=== PATIENT | female | born 1950 | race Caucasian/White ===

== ENCOUNTER 2020-05-13 10:31 | Day surgery (SDC) | payer MEDICARE, SELFPAY ==
[2020-04-01 16:56] VITALS: BMI 37.9
[2020-05-03 15:07] VITALS: BMI 37.9
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
[2020-05-13 10:37] VITALS: BP 138/82; PULSE 80; RESP 18; TEMP 36.2; O2SAT 97
[2020-05-13] MEDS: Lactated Ringers 1,000 ML 100 ML IVCONT (11:28)
[2020-05-13 12:29] VITALS: BP 95/49; PULSE 71; RESP 15; TEMP 36.9; O2SAT 94
--- NOTE | 2020-05-13 12:37 | PM.OP ---
Brief Operative Note Date of Service: 05/13/20 Pre-op diagnosis: Hx of appendiceal orifice serrated adenoma Post-op diagnosis: other (Appendiceal orifice polyp, Diverticulosis, Cecal AVM) Procedure: Colonoscopy to cecum and TI with biopsies Surgeon: Vamshi Cobian Anesthesia: MAC Estimated blood loss (mL): 3.0 Pathology: other (A. Appendiceal orifice polyp) Condition: stable Disposition: PACU
[2020-05-13 12:46] VITALS: BP 103/52; PULSE 69; RESP 16; TEMP 36.9; O2SAT 96
--- NOTE | 2020-05-13 13:07 | OP_ITS ---
SURGEON: Vamshi Cobian MD INDICATIONS: The patient presents for evaluation of a personal history of a serrated adenoma of the appendiceal orifice. Full consent has been obtained from her for this, including risks of bleeding and perforation. PREOPERATIVE DIAGNOSIS: POSTOPERATIVE DIAGNOSIS: PROCEDURE PERFORMED: Colonoscopy to the cecum and terminal ileum with biopsies. ESTIMATED BLOOD LOSS: COMPLICATIONS: ANESTHESIA: Monitored anesthesia care. ASSISTANTS: SPECIMENS: PREOPERATIVE DIAGNOSES: Personal history of serrated adenoma of the appendiceal orifice, colorectal cancer screening. POSTOPERATIVE DIAGNOSES: Personal history of serrated adenoma of the appendiceal orifice, colorectal cancer screening, appendiceal orifice polyp, diverticulosis and internal hemorrhoids. DESCRIPTION OF PROCEDURE: The patient was placed in the left lateral decubitus position. The digital rectal exam revealed no abnormalities. The Olympus video pediatric colonoscope was entered into the rectum and advanced easily to the cecum. Once in the cecum, I did identify cecal pouch. There was an approximately 4 mm nonbleeding cecal angiodysplasia. The terminal ileum was cannulated and appeared normal. The scope was withdrawn back in the colon. The entire cecum was well visualized. The appendiceal orifice was carefully inspected. There did appear to be residual polypoid tissue going in and out of the appendiceal orifice. I was not able to remove it entirely given its tendency to go back into the appendiceal orifice. However, I do feel I obtained at least 2 or 3 biopsies from the polypoid tissue. The remainder of the cecum appeared normal. The scope was then slowly withdrawn assessing all mucosal surfaces carefully. Preparation was excellent. I did not visualize any other polyps, colitis, nor angiodysplasia. There was a mild amount of sigmoid diverticulosis. In the rectum, scope was retroflexed visualizing internal hemorrhoids, but no other pathology. The rectal mucosa appeared normal. Scope was straightened and withdrawn from the patient. She tolerated the procedure well and was returned to the recovery area in stable condition. IMPRESSION: 1. Appendiceal orifice polyp, status post biopsy. 2. Diverticulosis. 3. Internal hemorrhoids. PLAN: The results of the biopsies will be checked. If the biopsies from the appendiceal orifice polyp continued to show adenomatous, and especially serrated adenoma, tissue, I would then definitely recommend surgical consultation to remove this via a partial resection of that area, including appendectomy. She was advised not to use any aspirin and NSAIDs for 1 week. I will be in touch with her as of the biopsy results. I would recommend a repeat colonoscopy within 2 years for followup. MD MARYANN Blake/KAITLYN / [id number]
== END 2020-05-13 23:59 | disposition home or self-care (01) ==
PROVIDERS: Visit Provider Internal Medicine
PROC: 0DJD8ZZ Inspection of Lower Intestinal Tract, Via Natural or Artificial Opening Endoscopic (ICD-10-PCS; CPT 45378; principal; 2020-05-13 11:30)
DX: Z12.11 Encounter for screening for malignant neoplasm of colon (principal); D12.0 Benign neoplasm of cecum; K55.20 Angiodysplasia of colon without hemorrhage; K57.30 Diverticulosis of large intestine without perforation or abscess without bleeding; K64.8 Other hemorrhoids; K58.0 Irritable bowel syndrome with diarrhea; I10 Essential (primary) hypertension; Z79.82 Long term (current) use of aspirin
CPT/HCPCS: 45380; 88305

== ENCOUNTER → 2020-06-13 11:01 | Outpatient (BNVA) | payer MEDICARE, SELFPAY | PROVIDERS: PCP Internal Medicine; Referring Provider Internal Medicine; Visit Provider Surgery | DX: D12.1 Benign neoplasm of appendix (principal) | CPT/HCPCS: 99212 ==

== ENCOUNTER 2020-07-03 08:07 | Day surgery (SDC) | payer MEDICARE, SELFPAY ==
[2020-06-28 08:07] VITALS: BMI 36.1
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
[2020-07-03] VITALS (8 sets, daily range): BP systolic 115–171; BP diastolic 40–68; PULSE 66–75; RESP 16–23; TEMP 36.4–37.6; O2SAT 92–96
[2020-07-03] MEDS: Acetaminophen 325 MG TABLET 650 MG PO (08:30)
[2020-07-03] MEDS: Lactated Ringers 1,000 ML 100 ML IVCONT (08:41)
[2020-07-03] MEDS: cefoTEtan disodium 2 GM in 0.9 % Sodium Chloride 50 ML IV (08:42)
--- NOTE | 2020-07-03 09:13 | MHC.SHP ---
Pre-Procedural Eval Section A The patient is an INPATIENT: No Changes since office visit: Yes Patient answered all questions; No Cold of Flu in the past 2 weeks, No New Medical Problems and No Changes in Medication The History & Physical has been completed within 30 days and I have reviewed it.: Yes Section B Chief Complaint: adenoma of appendix Allergies: Allergies Allergy/AdvReac Type Severity Reaction Status Date / Time Sulfa (Sulfonamide Allergy Intermediate Itching Verified 06/28/20 08:18 Antibiotics) [SULFA (SULFONAMIDE ANTIBIOTICS)] trazodone Allergy Unknown Unknown Verified 06/28/20 08:14 Plan I have reviewed the history and physical and performed a pertinent physical examination on my patient. No changes have occurred unless specified.
--- NOTE | 2020-07-03 10:58 | P.OP_ITS ---
Operative Note Operative Note Date of Service: 07/03/20 Narrative: Peroperative diagnosis: Sessile polyp our FS appendix Postoperative diagnosis: Same Procedure: Laparoscopic appendectomy Plant Operations Worker: Cornelio Cornell PA-C Anesthesia: General endotracheal Specimen: Appendix Estimated blood loss: Less than 10 cc Immediate complications: none Indications: This is a 69-year-old female who was noted on colonoscopy to have a sessile polyp of the appendiceal orifice. Complete excision was not possible colonoscopic Evelyn appendectomy may was recommended. Procedure in detail with the patient in the supine position after induction of adequate general anesthesia, the abdomen was prepped with ChloraPrep and was draped sterilely. Time-out procedure was performed. Each trocar site was infiltrated with local anesthetic prior to making incisions. 2 g of cefotetan were infused for antibiotic prophylaxis. An infraumbilical incision was made was carried down to the level of the fascia. The fascia was elevated midline with Omer clamp and holding sutures of 0 Polysorb were placed on either side. The [place] was then released in the fascia was split in the midline. The peritoneal cavity was entered. The Myriam trocar was inserted and stabilized with the fascial sutures. The abdomen was insufflated with carbon dioxide to a pressure 15 mm of mercury. The 0 degree, 5 mm laparoscopic was inserted in the peritoneal cavity was visualized. Because of body habitus, and adhesions in the lower abdomen, knee insufflated space was somewhat restricted initially. She was placed in Trendelenburg position. 5 mm trocar was placed laterally in the left lower quadrant. A blunt grasper was inserted and the cecum was identified. A 2nd 5 mm trocar was placed medially in the left upper quadrant and the laparoscope was removed and replaced with a 5-30 laparoscopic, which was inserted through the left upper quadrant trocar. The laparoscopic 5 mm LigaSure was then employed. It was inserted through the left lower quadrant trocar. Some adhesions between omentum and left lower quadrant abdominal wall were taken down using the LigaSure. Blunt graspers were then inserted through the Myriam and the left lower quadrant port. The cecum was elevated. The appendix was identified and grasped with a blunt grasper. The grasper was then removed from the Myriam and the LigaSure was inserted. The mesoappendix was divided using the LigaSure down to the base of the appendix. The LigaSure was then removed an Endo-NATO 45 mm purple load was inserted through the Myriam trocar and angled. It was placed just beyond the base of the appendix on the cecum taking care not to encroach upon the ileocecal valve. The device was closed. The jaws were inspected to ensure that no extraneous tissues were included, and the device was fired, opened and removed. A small amount of intact cecum remained along flor lateral aspect of the staple line. A 30 mm very a purple load was therefore obtained and device was inserted, placed across the intact portion of the cecum and closed. Again, the jaws were inspected to be sure that no extraneous tissues were included. The device was fired, opened and removed. The staple line was inspected on the cecum and was noted to be intact with no bleeding. The specimen pouch was inserted through the Myriam trocar and the appendix was placed into the pouch. The pouch was then closed and removed along with the Myriam. The appendix was opened. A small amount of polypoid tissue was noted. Immediate gross examination was obtained. The margin appeared clear grossly. The right lower quadrant was irrigated with saline solution and the staple line was again inspected, and was noted to be intact and without bleeding. The laparoscopic placed through the Myriam trocar. 5 mm trocars were removed under direct vision. There was no evidence of bleeding. Insufflation was discontinued and gas was allowed to escape in the peritoneal cavity. The Myriam trocar was then removed. Fascia at the Myriam site was closed with figure-of- eight suture of 0 Polysorb and the holding sutures were tied to 1 another. Skin incisions were closed with subcuticular sutures of 4-0 Polysorb. Steri-Strips and dry sterile dressings were applied. She tolerated the procedure well and was transported to the recovery room in stable condition. There were no immediate complications.
[2020-07-03] MEDS: oxyCODONE HCl Immed Release 5 MG TABLET PO (11:40)
== END 2020-07-03 12:25 | disposition home or self-care (01) ==
PROVIDERS: Visit Provider Surgery
PROC: 0DTJ4ZZ Resection of Appendix, Percutaneous Endoscopic Approach (ICD-10-PCS; CPT 44970; principal; 2020-07-03 09:40)
DX: D12.1 Benign neoplasm of appendix (principal); K66.0 Peritoneal adhesions (postprocedural) (postinfection); I10 Essential (primary) hypertension; K58.9 Irritable bowel syndrome, unspecified; G47.33 Obstructive sleep apnea (adult) (pediatric); Z99.89 Dependence on other enabling machines and devices; Z79.899 Other long term (current) drug therapy; Z88.2 Allergy status to sulfonamides; Z88.8 Allergy status to other drugs, medicaments and biological substances
CPT/HCPCS: 44970; 88304; 88329; J0330; J1100; J2250; J2405; J3010

== ENCOUNTER → 2020-07-09 09:00 | Outpatient (BNVA) | payer MEDICARE, SELFPAY | PROVIDERS: PCP Internal Medicine; Visit Provider Surgery | DX: D12.1 Benign neoplasm of appendix (principal) | CPT/HCPCS: 99212 ==

== ENCOUNTER 2021-11-25 14:30 | Outpatient (REF) | payer MEDICARE, SELFPAY ==
--- NOTE | ~2021-11-25 | MM_ITS ---
EXAMINATION: BONE DENSITOMETRY CLINICAL INDICATION: Asymptomatic menopausal state. COMPARISON: None. TECHNIQUE: Using a [employer] DXA System (software version: 13.1) manufactured by [employer], dual-energy x-ray absorptiometry was performed of the lumbar spine and left hip. The images are of good technical quality. Summary results are attached. FINDINGS: AP SPINE: L1-L4 (excluding L2): The data of L1-L4 has been changed to exclude the L2 vertebral body, because degenerative changes at this level may cause overestimation of lumbar spine density. BMD 1.162 g/cm2, Z-score 0.5, T-score -0.1, normal. LEFT FEMUR, NECK: BMD 1.067 g/cm2, Z-score 1.1, T-score 0.2, normal. LEFT FEMUR, TOTAL: BMD 1.121 g/cm2, Z-score 1.5, T-score 0.9, normal. IDENTIFIED RISK FACTORS: History of adult fracture. Height loss. Low calcium intake. Secondary osteoporosis (early menopause). Hysterectomy. Right oophorectomy. HISTORY OF FRACTURE: Sternum. MEDICATIONS: Vitamin D. MM/XR DEXA axial skeleton IMPRESSION: 1. DIAGNOSIS: Normal bone density based on the lowest T-score value of -0.1 in the lumbar spine applying World Health Organization criteria. 2. 10-YEAR FRACTURE RISK PREDICTION, FRAX: According to the guidelines, FRAX calculation should only be performed on patients in the osteopenia bone density category. Therefore, FRAX was not performed on this patient. 3. Treatment Recommendations: NOF guidelines recommend consideration for treatment in postmenopausal women and men age 50 and older presenting with the following: -A hip or vertebral (clinical or morphometric) fracture. -T-score less than or equal to -2.5 at the femoral neck or spine after appropriate evaluation to exclude secondary causes. -Low bone mass at the hip or spine and a 10-year fracture probability by FRAX of greater than or equal to 3% for hip fracture or greater than or equal to 20% for major osteoporotic fracture based on the [place] adapted WHO algorithm. 4. Other Recommendations: All treatment decisions require clinical judgment and consideration of individual patient factors, including patient preferences, comorbidities, previous drug use, risk factors not captured in the FRAX model (e.g. frailty, falls, vitamin D deficiency, increased bone turnover, interval significant decline in bone density) and possible under or overestimation of fracture risk by FRAX. FUTURE SCAN RECOMMENDATION: People with diagnosed cases of osteoporosis or at high risk for fracture should have regular bone mineral density tests. For patients eligible for Medicare, routine testing is allowed once every 2 years. The testing frequency can be increased to one year for patients who have rapidly progressing disease, those who are receiving or discontinuing medical therapy to restore bone mass, or have additional risk factors.
--- NOTE | ~2021-11-25 | MM_ITS ---
EXAMINATION: MM SCREENING DIGITAL BREAST TOMOSYNTHESIS, BILATERAL CLINICAL INFORMATION: Screening. Asymptomatic. The lifetime risk of breast cancer based on the Tyrer-Cuzick Model is 3%. COMPARISON: Outside mammography: 12/20/2020, 01/25/2017, 11/19/2015 ([facility]). TECHNIQUE: Digital breast tomosynthesis is performed in both the craniocaudal and mediolateral oblique views along with computer-aided detection (CAD). Synthesized 2D images are generated from the tomosynthesis. FINDINGS: There are scattered areas of fibroglandular density (ACR BI-RADS breast composition Category b). Breast tissue composition borders on predominantly fatty. Background stromal markings are stable. There are no significant masses, abnormal calcifications, or other abnormalities. Parenchymal pattern is similar to prior outside studies. No developing density or architectural abnormality. The axilla and skin contours are unremarkable. No significant changes. MM/MM tomosynthesis screening BI IMPRESSION: No mammographic evidence of malignancy. ASSESSMENT: BI-RADS 1: Negative RECOMMENDATION: Routine annual mammography screening. This patient's information was entered into a reminder system with a target due date for their next mammogram.
== END 2021-11-25 14:31 | disposition home or self-care (01) ==
LOC: HO.MAMMO 14:30
PROVIDERS: Visit Provider Internal Medicine
DX: Z12.31 Encounter for screening mammogram for malignant neoplasm of breast (principal); Z13.820 Encounter for screening for osteoporosis; Z78.0 Asymptomatic menopausal state; N95.8 Other specified menopausal and perimenopausal disorders
CPT/HCPCS: 77063; 77067; 77080

== ENCOUNTER → 2021-12-17 14:05 | Outpatient (REF) | payer MEDICARE, SELFPAY ==
--- NOTE | 2021-12-17 14:10 | CA_ITS ---
Transthoracic Echocardiogram Patient (Last, First, Middle): Irasema Aguilera A Gender: Female Date of : 1950 Age: 71 Procedure Date: 12/17/2021 Procedure Type: Transthoracic Echocardiogram Location: OP Height: 165.1 cm Weight: 97.52 kg BSA: 2.04 m2 Heart Rate: 75 bpm Auto Polisher: JENNIFER Garcia MD: Elma Koch MD Modeling Instructor: Esequiel Leos MD Symptoms: R01.1 - Cardiac murmur, unspecified Study Quality: Adequate ECG Rhythm: Sinus Conclusions: - 1. Hyperdynamic LV systolic function with impaired relaxation filling pattern and elevated filling pressures 2. Early aortic stenosis 3. No pericardial effusion Findings Left Ventricle Normal left ventricular cavity size. There is normal left ventricular wall thickness. The visually estimated ejection fraction is >70%. There is no evidence of regional wall motion abnormalities. Spectral Doppler is indicative of an impaired relaxation filling pattern. Elevated filling pressures. E/E prime ratio is >15, consistent with elevated filling pressures. Right Ventricle Normal right ventricular cavity size and systolic function. Atria The left atrium is normal in size. Interatrial shunt cannot be excluded. The right atrium is normal in size. Aortic Valve The aortic valve was not well visualized. The peak aortic gradient is 16 mmHg.The mean gradient is 8 mmHg. There is no aortic valve regurgitation. mildly elevated will also disease across the aortic valve, could suggest early aortic stenosis Mitral Valve There is mild anterior and moderate posterior mitral leaflet thickening. There is moderate mitral annular calcification. There is trace mitral valve regurgitation. There is no mitral valve stenosis. Pulmonic Valve The pulmonic valve was not well visualized. Tricuspid Valve Likely normal tricuspid valve structure and function. Tricuspid regurgitation envelope is inadequate for calculation of right ventricular systolic pressure. Normal right atrial pressure. Great Vessels All visible segments of the aorta are normal in size. The pulmonary artery was not well visualized. Venous The inferior vena cava is normal in size and collapses greater than 50% with inspiration. Pericardium/Pleural There is no evidence of pericardial effusion. Prior Study Comparison no previous study in the last 5 years for comparison Measurements 2D Linear Measurements IVSd: 0.85 0.6-0.9/0.6-1.0 cm LVIDd: 5.06 3.9-5.3/4.2-5.9 cm LVIDd Index: 2.48 2.4-3.2/2.2-3.1 cm/m2 LVIDs: 3.29 2.0-3.6 cm LVPWd: 0.71 0.7-1.1 cm LA Diam: 3.10 2.7-3.8/3.0-4.0 cm LAIDs Index: 1.52 1.5-2.3 cm/m2 LV Mass: 167.12 67-162/88-224 g LV Mass Index: 81.92 43-95/49-115 g/m2 LVOT Diam: 1.80 3.0+(-)1.3 cm 2D Systolic Function EF 4C: 77.00 >55% EF 2C: 78.60 >55% EF BiP: 78.30 >55% Mitral Valve MV Pk E: 1.02 MV PK A: 1.42 MV Decel Time: 248.00 E/A: 0.70 E'Lateral: 6.96 E'Medial: 5.66 E/E' Med: 18.00 E/E' Lat: 14.70 PHT: 73.00 MVA PHT: 3.01 Decel [place]: 4.10 Aortic Valve AoV Pk Wander: 2.02 AoV Mn Wander: 1.30 AoV VTI: 0.40 AoV Pk Grad: 16.00 Aov Mn Grad: 8.00 PRECIOUS Cont.VTI: 2.08 LVOT LVOT Pk Wander: 1.47 LVOT Mn Wander: 1.01 LVOT VTI: 0.33 LVOT Pk Grad: 9.00 LVOT Mn Grad: 5.00 LVOT Diam: 1.80 LVOT Area: 2.54 Diastolic Function MV Pk E: 1.02 MV Pk A: 1.42 E/A: 0.70 E'Medial: 5.66 E/E' Med: 18.00 E' Laterial: 6.96 E/E' Lat: 14.70 Right Ventricle TAPSE (mm): 23.50 TVS' Wander: 13.10 Tricuspid Valve RA Press: 3.00 Great Vessels Aorta Sinus of Valsalva: 2.70 2.0-3.5 cm Ao Asc: 3.20 2.1-3.4 cm Pulmonary Veins Pulm Vein S/D 1.90 Pulmonary Valve PV Pk Wander: 1.14 Peak PV Grad: 5.00 Updated in Other Vendor System with Status of Final Esequiel Leos MD electronically signed on 12/17/2021 3:24:02 PM with status of Final
== END ==
LOC: HO.CARD 14:05
PROVIDERS: Visit Provider Internal Medicine
DX: R01.1 Cardiac murmur, unspecified (principal)
CPT/HCPCS: 93306

== ENCOUNTER 2021-12-25 16:48 | Outpatient (REF) | payer MEDICARE, SELFPAY ==
[2021-12-25 18:12] LABS: Alanine Aminotransferase 39 U/L (0-31); Albumin Level 4.5 g/dL (3.5-5.0); Alkaline Phosphatase 119 U/L (39-117); Anion Gap 16 (12-20); Aspartate Amino Transferase 35 U/L (5-31); Bilirubin Total 0.6 mg/dL (0.0-1.0); Blood Urea Nitrogen 12 mg/dL (9-16); Calcium 9.5 mg/dL (8.4-10.2); Carbon Dioxide 26 mmol/L (22-29); Chloride 101 mmol/L (96-108); Cholesterol 238 mg/dL; Estimated Glomerular Filt Rate 60; Glucose Fasting 126 mg/dL (60-99); HDL Cholesterol 46 mg/dL; LDL Cholesterol Calculated 164 mg/dl; Potassium 4.5 mmol/L (3.3-5.1); Sodium 138 mmol/L (135-145); Total Protein 7.5 g/dL (6.5-8.0); Triglycerides 141 mg/dL
== END 2021-12-25 16:49 | disposition home or self-care (01) ==
LOC: HO.LAB 16:48
PROVIDERS: PCP Internal Medicine; Visit Provider Internal Medicine
DX: E78.5 Hyperlipidemia, unspecified (principal); I10 Essential (primary) hypertension
CPT/HCPCS: 36415; 80053; 80061

== ENCOUNTER 2022-07-25 10:17 | Outpatient (REF) | payer MEDICARE, SELFPAY ==
[2022-07-25 11:36] LABS: Estimated Average Glucose 117 mg/dL; Hemoglobin A1c % 5.7 %
== END 2022-07-25 10:18 | disposition home or self-care (01) ==
LOC: HO.LAB 10:17
PROVIDERS: PCP Internal Medicine; Visit Provider Nurse Practitioner Family
DX: R73.01 Impaired fasting glucose (principal)
CPT/HCPCS: 36415; 83036

== ENCOUNTER 2023-01-04 10:58 | Day surgery (SDC) | payer MEDICARE, SELFPAY ==
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
[2023-01-04 11:28] VITALS: BMI 32.0
[2023-01-04 11:34] VITALS: BP 134/62; PULSE 68; RESP 15; TEMP 36.8; O2SAT 97
[2023-01-04] MEDS: Lactated Ringers 1,000 ML 100 ML IVCONT (11:54)
--- NOTE | 2023-01-04 14:11 | PM.OP ---
Brief Operative Note Date of Service: 01/04/23 Pre-op diagnosis: Screening Post-op diagnosis: other (Rectal polyp) Procedure: Colonoscopy to the cecum with bx/removal of polyp Surgeon: Vamshi Cobian Anesthesia: MAC Was an Production Miner used for this Procedure?: No Estimated blood loss (mL): 2.0 Pathology: other (A. Distal rectal polyp) Condition: stable Disposition: PACU
[2023-01-04 14:14] VITALS: BP 109/58; PULSE 61; RESP 16; TEMP 36.1; O2SAT 94
[2023-01-04 14:29] VITALS: BP 117/55; PULSE 60; RESP 17; TEMP 36.2; O2SAT 96
--- NOTE | 2023-01-05 00:33 | OP_ITS ---
DATE OF SERVICE: 01/04/2023 SURGEON: Vamshi Cobian MD INDICATIONS: The patient presents for evaluation of personal history of colon polyps and colorectal cancer screening. Full consent obtained from her for this, including risks of bleeding and perforation. PREOPERATIVE DIAGNOSIS: POSTOPERATIVE DIAGNOSIS: PROCEDURE PERFORMED: Colonoscopy to cecum with biopsy and removal of polyp. ESTIMATED BLOOD LOSS: COMPLICATIONS: ANESTHESIA: Monitored anesthesia care. ASSISTANTS: SPECIMENS: PREOPERATIVE DIAGNOSES: Personal history of colon polyps and colorectal cancer screening. POSTOPERATIVE DIAGNOSES: Personal history of colon polyps and colorectal cancer screening, distal rectal polyp, diverticulosis, nonbleeding AVM's, and internal hemorrhoids. DESCRIPTION OF PROCEDURE: The patient was placed in the left lateral decubitus position. The digital rectal exam revealed no abnormalities. The Olympus video pediatric colonoscope was entered into the rectum, advanced easily to the cecum. Once in the cecum, I did identify what appeared to be the appendiceal orifice, which appeared to be normal without any sign of residual polyp or tissue. The entire cecum was well visualized and otherwise appeared normal other than some nonbleeding less than 10mm angiodysplasias.These were not treated given no sign of bleeding. The ileocecal valve appeared normal. There was transillumination of light deep in the right lower quadrant. The scope was then slowly withdrawn assessing all mucosal surfaces carefully. Preparation was excellent. I did not visualize any sign of colitis. In very proximal ascending colon were 2 or 3 nonbleeding, less than 10 mm angiodysplasias. There was a mild amount of sigmoid diverticulosis. In the rectum, seen both in the retroflexed and forward viewing position was an approximately 4 mm polyp, which was biopsied and completely removed with cold biopsy forceps. Also noted were some small internal hemorrhoids. The remainder of the rectum appeared normal. The scope was straightened and withdrawn from the patient. She tolerated the procedure well and was returned to recovery area in stable condition. IMPRESSION: 1. Distal rectal polyp, status post biopsy and removal. 2. Mild diverticulosis. 3. Small internal hemorrhoids. 4. Nonbleeding angiodysplasias. PLAN: The results of the pathology will be checked. I would recommend a repeat colonoscopy in 3 years for further screening and surveillance. She was advised not to use any aspirin and NSAIDs for 1 more week. She will otherwise see me on a p.r.n. basis. MD MARYANN Blake/KAITLYN / [phone] MTDRonnie
== END 2023-01-04 15:18 | disposition home or self-care (01) ==
PROVIDERS: PCP Internal Medicine; Visit Provider Internal Medicine
PROC: 0DJD8ZZ Inspection of Lower Intestinal Tract, Via Natural or Artificial Opening Endoscopic (ICD-10-PCS; CPT 45378; principal; 2023-01-04 12:40)
DX: Z12.11 Encounter for screening for malignant neoplasm of colon (principal); D12.8 Benign neoplasm of rectum; K55.20 Angiodysplasia of colon without hemorrhage; K57.30 Diverticulosis of large intestine without perforation or abscess without bleeding; K64.8 Other hemorrhoids; K58.0 Irritable bowel syndrome with diarrhea; E11.9 Type 2 diabetes mellitus without complications; I10 Essential (primary) hypertension; E78.5 Hyperlipidemia, unspecified; K21.9 Gastro-esophageal reflux disease without esophagitis; K58.9 Irritable bowel syndrome, unspecified; Z86.010 Personal history of colon polyps; G47.33 Obstructive sleep apnea (adult) (pediatric); Z99.89 Dependence on other enabling machines and devices; E66.9 Obesity, unspecified; Z68.34 Body mass index [BMI] 34.0-34.9, adult; Z79.899 Other long term (current) drug therapy
CPT/HCPCS: 45380; 88305

== ENCOUNTER 2023-01-15 13:57 | Outpatient (REF) | payer MEDICARE, SELFPAY ==
--- NOTE | ~2023-01-15 | MM_ITS ---
EXAMINATION: MM SCREENING DIGITAL BREAST TOMOSYNTHESIS, BILATERAL CLINICAL INFORMATION: Screening. Asymptomatic. The lifetime risk of breast cancer based on the Tyrer-Cuzick Model is 2.9%. COMPARISON: Mammography: This study is compared with prior exams dating back to 2017. TECHNIQUE: Digital breast tomosynthesis is performed in both the craniocaudal and mediolateral oblique views along with computer-aided detection (CAD). Synthesized 2D images are generated from the tomosynthesis. FINDINGS: There are scattered areas of fibroglandular density (ACR BI-RADS breast composition Category b). There are no significant masses, abnormal calcifications, or other abnormalities. MM/MM tomosynthesis screening BI IMPRESSION: No mammographic evidence of malignancy. ASSESSMENT: BI-RADS BI-RADS 1 - Negative RECOMMENDATION: Routine annual mammography screening. 1 year F/U This examination should not preclude the clinical evaluation of a suspicious palpable abnormality. This patient's information was entered into a reminder system with a target due date for their next mammogram.
== END 2023-01-15 13:58 | disposition home or self-care (01) ==
LOC: HO.MAMMO 13:57
PROVIDERS: PCP Internal Medicine; Visit Provider Internal Medicine
DX: Z12.31 Encounter for screening mammogram for malignant neoplasm of breast (principal)
CPT/HCPCS: 77063; 77067

== ENCOUNTER → 2023-01-15 14:00 | Outpatient (BNV) | payer MEDICARE, SELFPAY | PROVIDERS: PCP Internal Medicine; Visit Provider Radiology Diagnostic Radiology | DX: Z12.31 Encounter for screening mammogram for malignant neoplasm of breast (principal) | CPT/HCPCS: 77063; 77067 ==

== ENCOUNTER 2023-03-23 13:57 | Outpatient (AMB) | payer MEDICARE, SELFPAY ==
[2023-03-23 13:58] VITALS: BP 132/86; PULSE 76; O2SAT 97; BMI 32.6
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
== END 2023-03-23 14:35 | disposition home or self-care (01) ==
PROVIDERS: Visit Provider Nurse Practitioner Family
DX: Z00.00 Encounter for general adult medical examination without abnormal findings (principal); F33.0 Major depressive disorder, recurrent, mild; Z68.32 Body mass index [BMI] 32.0-32.9, adult; R73.01 Impaired fasting glucose; K21.9 Gastro-esophageal reflux disease without esophagitis; G47.33 Obstructive sleep apnea (adult) (pediatric); Z99.89 Dependence on other enabling machines and devices; K58.9 Irritable bowel syndrome, unspecified; I10 Essential (primary) hypertension; E66.9 Obesity, unspecified; G47.00 Insomnia, unspecified; E78.5 Hyperlipidemia, unspecified
CPT/HCPCS: 1124F; G0439

== ENCOUNTER 2023-08-04 13:25 | Outpatient (AMB) | payer MEDICARE, SELFPAY ==
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
[2023-08-04 13:29] VITALS: BP 132/80; BMI 33.9
== END 2023-08-04 14:12 | disposition home or self-care (01) ==
PROVIDERS: PCP Internal Medicine; Visit Provider Internal Medicine
DX: K21.9 Gastro-esophageal reflux disease without esophagitis (principal); F33.0 Major depressive disorder, recurrent, mild; E78.00 Pure hypercholesterolemia, unspecified; R73.01 Impaired fasting glucose; I10 Essential (primary) hypertension
CPT/HCPCS: 99214

== ENCOUNTER 2023-09-28 15:23 | Outpatient (AMB) | payer MEDICARE, SELFPAY ==
[2023-09-28 15:24] VITALS: BMI 33.9
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
== END 2023-09-28 15:46 | disposition home or self-care (01) ==
PROVIDERS: PCP Internal Medicine; Visit Provider Surgery Vascular Surgery
DX: I83.11 Varicose veins of right lower extremity with inflammation (principal)
CPT/HCPCS: 99203

== ENCOUNTER → 2023-09-28 15:23 | Outpatient (BNVA) | payer MEDICARE, SELFPAY | PROVIDERS: PCP Internal Medicine; Visit Provider Surgery Vascular Surgery | DX: I83.11 Varicose veins of right lower extremity with inflammation (principal) | CPT/HCPCS: 99202 ==

== ENCOUNTER 2023-11-04 12:59 | Outpatient (REF) | payer MEDICARE, SELFPAY ==
--- NOTE | ~2023-11-04 | US_ITS ---
EXAMINATION: US LOWER EXTREMITY VENOUS (REFLUX EXAM), BILATERAL CLINICAL INDICATION: Varicose veins of right lower extremity with inflammation COMPARISON: None. TECHNIQUE: Color flow triplex imaging and compression Doppler was performed to evaluate both the deep and the superficial systems bilaterally. To evaluate the superficial system, the examination was performed in the upright position. Color-flow Doppler ultrasound and compression ultrasound were utilized. In addition, maneuvers were utilized to demonstrate reflux. FINDINGS: 1. DEEP VENOUS ULTRASOUND OF THE RIGHT LOWER EXTREMITY: Common Femoral Vein: Compressible, normal respiratory variation and augmented flow. Femoral Vein: Compressible, normal color flow and augmentation. Popliteal Vein: Compressible, normal augmentation. Deep Reflux: There is no evidence of reflux in the deep system in either the common femoral vein, superficial femoral or the popliteal vein. There is no evidence of a Fritz's cyst. 2. SUPERFICIAL ULTRASOUND WITH DOPPLER OF RIGHT LOWER EXTREMITY: GREAT SAPHENOUS VEIN: Saphenofemoral Junction: 1.0 cm; Reflux: 0 ms Proximal Thigh: 0.6 cm; Reflux: 0 ms Mid Thigh: 0.3 cm; Reflux: 0 ms Above Knee: 0.3 cm; Reflux: 0 ms At Knee: 0.6 cm; Reflux: 0 ms Below Knee: 0.3 cm; Reflux: 800 ms Mid Calf: 0.2 cm; Reflux: 0 ms Ankle: 0.2 cm; Reflux: 0 ms DUPLICATED LATERAL GREAT SAPHENOUS VEIN: Saphenofemoral Junction: 0.5 cm; Reflux: 0 ms Mid Thigh: 0.3 cm; Reflux: 0 ms SMALL SAPHENOUS VEIN: Saphenopopliteal Junction: 0.2 cm; Reflux: 0 ms Proximal: 0.2 cm; Reflux: 0 ms Distal: 0.2 cm; Reflux: 0 ms VARICOSITIES: Location: Proximal thigh (GSV) Size: 0.3; Reflux: 0 ms Location: Proximal thigh (GSV) Size: 0.4; Reflux: 0 ms 3. DEEP VENOUS ULTRASOUND OF THE LEFT LOWER EXTREMITY: Common Femoral Vein: Compressible, normal respiratory variation and augmented flow. Femoral Vein: Compressible, normal color flow and augmentation. Popliteal Vein: Compressible, normal augmentation. Deep Reflux: There is no evidence of reflux in the deep system in either the common femoral vein, superficial femoral or the popliteal vein. There is no evidence of a Fritz's cyst. 4. SUPERFICIAL ULTRASOUND WITH DOPPLER OF LEFT LOWER EXTREMITY: GREAT SAPHENOUS VEIN: Saphenofemoral Junction: 0.7 cm; Reflux: 0 ms Proximal Thigh: 0.7 cm; Reflux: 0 ms Mid Thigh: 0.3 cm; Reflux: 0 ms Above Knee: 0.4 cm; Reflux: 0 ms At Knee: 0.2 cm; Reflux: 0 ms Below Knee: 0.3 cm; Reflux: 0 ms Mid Calf: 0.3 cm; Reflux: 0 ms Ankle: 0.3 cm; Reflux: 0 ms DUPLICATED MEDIAL GREAT SAPHENOUS VEIN: Mid Thigh: 0.4 cm; Reflux: 0 ms DUPLICATED LATERAL GREAT SAPHENOUS VEIN: Saphenofemoral Junction: 0.5 cm; Reflux: 0 ms SMALL SAPHENOUS VEIN: Saphenopopliteal Junction: 0.2 cm; Reflux: 0 ms Proximal: 0.3 cm; Reflux: 0 ms Distal: Not visualized VARICOSITIES: Location: [place] Size: 0.3; Reflux: 0 ms Location: Distal thigh Size: 0.3; Reflux: 0 ms Location: Mid thigh Size: 0.3; Reflux: 0 ms Location: Proximal thigh Size: 0.3; Reflux: 0 ms Location: Distal thigh Size: 0.3; Reflux: 0 ms US/US venous duplex LE BI IMPRESSION: 1. No evidence of deep venous thrombosis or reflux. 2. Focal incompetence of the right great saphenous vein below the knee with reflux up to 800 ms. 3. The remaining right great saphenous vein, the left great saphenous vein, and the bilateral small saphenous veins are competent. However, the truncal veins supply multiple varicosities in the bilateral thighs and left calf, which do not demonstrate significant reflux.
== END 2023-11-04 13:00 | disposition home or self-care (01) ==
LOC: HO.US 12:59
PROVIDERS: PCP Internal Medicine; Visit Provider Surgery Vascular Surgery
DX: I83.11 Varicose veins of right lower extremity with inflammation (principal)
CPT/HCPCS: 93970

== ENCOUNTER 2023-12-09 15:13 | Outpatient (AMB) | payer MEDICARE, SELFPAY ==
[2023-12-09 15:19] VITALS: BMI 33.9
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
== END 2023-12-09 16:05 | disposition home or self-care (01) ==
PROVIDERS: PCP Internal Medicine; Visit Provider Surgery Vascular Surgery
DX: I83.11 Varicose veins of right lower extremity with inflammation (principal)
CPT/HCPCS: 99213

== ENCOUNTER → 2023-12-09 15:13 | Outpatient (BNVA) | payer MEDICARE, SELFPAY | PROVIDERS: PCP Internal Medicine; Visit Provider Surgery Vascular Surgery | DX: I83.11 Varicose veins of right lower extremity with inflammation (principal) | CPT/HCPCS: 99212 ==

== ENCOUNTER → 2024-01-21 16:00 | Outpatient (BNV) | payer MEDICARE, SELFPAY | PROVIDERS: PCP Internal Medicine; Visit Provider Radiology Diagnostic Radiology | DX: Z12.31 Encounter for screening mammogram for malignant neoplasm of breast (principal) | CPT/HCPCS: 77063; 77067 ==

== ENCOUNTER 2024-01-21 16:03 | Outpatient (REF) | payer MEDICARE, SELFPAY ==
--- NOTE | ~2024-01-21 | MM_ITS ---
EXAMINATION: MM SCREENING DIGITAL BREAST TOMOSYNTHESIS, BILATERAL CLINICAL INFORMATION: Screening. Asymptomatic. COMPARISON: Mammography: This study is compared with prior exams dating back to 2017. TECHNIQUE: Digital breast tomosynthesis is performed in both the craniocaudal and mediolateral oblique views along with computer-aided detection (CAD). Direct 2-D images of each breast in the standard screening projections are also obtained. FINDINGS: The breasts are almost entirely fatty (ACR BI-RADS breast composition Category a). There are no significant masses, abnormal calcifications, or other abnormalities. MM/MM tomosynthesis screening BI IMPRESSION: No mammographic evidence of malignancy. ASSESSMENT: BI-RADS BI-RADS 1 - Negative RECOMMENDATION: Routine annual mammography screening. 1 year F/U This examination should not preclude the clinical evaluation of a suspicious palpable abnormality. This patient's information was entered into a reminder system with a target due date for their next mammogram. Electronically signed by: Bina Liu MD 02/17/2024 12:29 PM EDT
== END 2024-01-21 16:04 | disposition home or self-care (01) ==
LOC: HO.MAMMO 16:03
PROVIDERS: PCP Internal Medicine; Visit Provider Internal Medicine
DX: Z12.31 Encounter for screening mammogram for malignant neoplasm of breast (principal)
CPT/HCPCS: 77063; 77067

== ENCOUNTER 2024-01-27 14:40 | Outpatient (REF) | payer MEDICARE, SELFPAY ==
[2024-01-27 16:43] LABS: Alanine Aminotransferase 25 U/L (0-31); Albumin Level 4.3 g/dL (3.5-5.0); Alkaline Phosphatase 115 U/L (39-117); Anion Gap 13 (12-20); Aspartate Amino Transferase 20 U/L (5-31); Bilirubin Total 0.4 mg/dL (0.0-1.0); Blood Urea Nitrogen 12 mg/dL (9-16); Calcium 9.2 mg/dL (8.4-10.2); Carbon Dioxide 27 mmol/L (22-29); Chloride 106 mmol/L (96-108); Cholesterol 261 mg/dL (<200); Estimated Glomerular Filt Rate > 60; Glucose Fasting 104 mg/dL (60-99); HDL Cholesterol 55 mg/dL (>40); LDL Cholesterol Calculated 183 mg/dL (<100); Potassium 3.6 mmol/L (3.3-5.1); Sodium 142 mmol/L (135-145); Total Protein 7.2 g/dL (6.5-8.0); Triglycerides 116 mg/dL (<150)
== END 2024-01-27 14:41 | disposition home or self-care (01) ==
LOC: HO.LAB 14:40
PROVIDERS: PCP Internal Medicine; Visit Provider Internal Medicine
DX: E78.5 Hyperlipidemia, unspecified (principal)
CPT/HCPCS: 36415; 80053; 80061

== ENCOUNTER 2024-02-02 13:23 | Outpatient (AMB) | payer MEDICARE, SELFPAY ==
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
[2024-02-02 13:35] VITALS: BP 128/82; BMI 34.6
== END 2024-02-02 14:02 | disposition home or self-care (01) ==
PROVIDERS: PCP Internal Medicine; Visit Provider Internal Medicine
DX: I10 Essential (primary) hypertension (principal); F33.0 Major depressive disorder, recurrent, mild; G47.33 Obstructive sleep apnea (adult) (pediatric); Z99.89 Dependence on other enabling machines and devices; K21.9 Gastro-esophageal reflux disease without esophagitis; E78.00 Pure hypercholesterolemia, unspecified
CPT/HCPCS: 99214; G2211

== ENCOUNTER 2024-03-23 14:42 | Outpatient (AMB) | payer MEDICARE, SELFPAY ==
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
== END 2024-03-23 16:22 | disposition home or self-care (01) ==
PROVIDERS: PCP Internal Medicine; Visit Provider Urology
DX: N81.6 Rectocele (principal)
CPT/HCPCS: 57160; 99203

== ENCOUNTER → 2024-03-23 14:42 | Outpatient (BNVA) | payer MEDICARE, SELFPAY | PROVIDERS: PCP Internal Medicine; Visit Provider Urology | DX: N81.6 Rectocele (principal); Z46.6 Encounter for fitting and adjustment of urinary device | CPT/HCPCS: 57160; 81003; 99202 ==

== ENCOUNTER 2024-08-09 14:53 | Outpatient (AMB) | payer MEDICARE, SELFPAY ==
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
[2024-08-09 15:12] VITALS: BP 128/70; PULSE 70; TEMP 36.2; O2SAT 97; BMI 35.7
--- OUTSIDE RECORDS SUMMARY | 2024-08-09 18:22 | XMS_ITS ---
Author Organization [facility] Address [address] [place] [address] Care Team Providers Care Telemarketer Name Role Phone Elma Lopez Primary Care Provider Vamshi Terry Unavailable [phone] [facility]ASON FOR VISIT [facility] MEDICATIONS Medication SIG (Take, Route, Frequency, Duration) Notes Start Date End Date Status Hyoscyamine Sulfate 0.125 MG 1 or 2 tablet under the tongue and allow to dissolve as needed Sublingual Every 6 hours as needed for abdominal cramps/discomfort for 30 days 06/15/2023 Active Encounters Encounter Location Date Provider Diagnosis [facility] [address] [place] [id number] 06/17/2023 Vamshi Cobian PLAN OF TREATMENT Medication Medication Name Sig Start Date Stop Date Notes Hyoscyamine Sulfate 0.125 MG 1 or 2 tabl et under the tongue and allow to dissolve as needed Sublingual Every 6 hours as needed for abdominal cramps/discomfort for 30 days 06/15/2023
--- OUTSIDE RECORDS SUMMARY | 2024-08-09 18:22 | XMS_ITS ---
Author Organization [facility] Address [address] [place] [address] Care Team Providers Care Account Services Associate Name Role Phone Elma Lopez Primary Care Provider Vamshi Terry Unavailable [phone] REASON FOR VISIT lost her bottle of hyoscyamine MEDICATIONS Medication SIG (Take, Route, Frequency, Duration) Notes Start Date End Date Status Hyoscyamine Sulfate 0.125 MG 1-2 tablets on the tongue and allow to dissolve as needed Orally Q 4-6 hours prn abdominal cramps/bloating/diarrhea for 90 days 11/05/2011 Active Encounters Encounter Location Date Provider Diagnosis [facility] [address] [place] [address] 07/14/2023 Vamshi Cobian PLAN OF TREATMENT Medication Medication Name Sig Start Date Stop Date Notes Hyoscyamine Sulfate 0.125 MG 1-2 tablets on the tongue and allow to dissolve as needed Orally Q 4-6 hours prn abdominal cramps/bloating/diarrhea for 90 days 11/05/2011
--- OUTSIDE RECORDS SUMMARY | 2024-08-09 18:22 | XMS_ITS ---
Author Organization [facility] Address [address] [place] [address] Care Team Providers Care Warranty Coordinator Name Role Phone Elma Lopez Primary Care Provider Vamshi Terry Unavailable [phone] REASON FOR VISIT side effects from dicyclomine MEDICATIONS Medication SIG (Take, Route, Frequency, Duration) Notes Start Date End Date Status Hyoscyamine Sulfate 0.125 MG 1 or 2 tablet under the tongue and allow to dissolve as needed Sublingual Every 6 hours as needed for abdominal cramps/discomfort for 30 days 06/15/2023 Active Encounters Encounter Location Date Provider Diagnosis [facility] [address] [place] [id number] 06/15/2023 Vamshi Cobian PLAN OF TREATMENT Medication Medication Name Sig Start Date Stop Date Notes Hyoscyamine Sulfate 0.125 MG 1 or 2 tabl et under the tongue and allow to dissolve as needed Sublingual Every 6 hours as needed for abdominal cramps/discomfort for 30 days 06/15/2023
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
== END 2024-08-09 15:51 | disposition home or self-care (01) ==
PROVIDERS: PCP Internal Medicine; Visit Provider Internal Medicine
DX: E78.00 Pure hypercholesterolemia, unspecified (principal); F33.1 Major depressive disorder, recurrent, moderate; E66.9 Obesity, unspecified; Z68.35 Body mass index [BMI] 35.0-35.9, adult; I10 Essential (primary) hypertension

== ENCOUNTER → 2024-08-09 14:53 | Outpatient (BNVA) | payer MEDICARE, SELFPAY | PROVIDERS: PCP Internal Medicine; Visit Provider Internal Medicine | DX: F33.1 Major depressive disorder, recurrent, moderate (principal); E78.00 Pure hypercholesterolemia, unspecified; E66.9 Obesity, unspecified; I10 Essential (primary) hypertension | CPT/HCPCS: 96127; 99212 ==

== ENCOUNTER 2024-11-07 16:06 | Outpatient (AMB) | payer MEDICARE, SELFPAY ==
--- OUTSIDE RECORDS SUMMARY | 2024-11-07 16:08 | XMS_ITS ---
Author Organization [facility] Address [address] [place] [phone] Care Team Providers Care Biology Teacher Name Role Phone Elma Lopez Primary Care Provider Vamshi Terry Unavailable [phone] REASON FOR VISIT lost her bottle of hyoscyamine Medications Medication SIG (Take, Route, Frequency, Duration) Notes Start Date End Date Status Hyoscyamine Sulfate 0.125 MG 1-2 tablets on the tongue and allow to dissolve as needed Orally Q 4-6 hours prn abdominal cramps/bloating/diarrhea for 90 days 11/05/2011 Active Encounters Encounter Location Date Provider Diagnosis [facility] [address] [place] [phone] 07/14/2023 Vamshi Cobian Plan Of Treatment Medication Medication Name Sig Start Date Stop Date Notes Hyoscyamine Sulfate 0.125 MG 1-2 tablets on the tongue and allow to dissolve as needed Orally Q 4-6 hours prn abdominal cramps/bloating/diarrhea for 90 days 11/05/2011 Progress Notes * DYLON BROWN ADOB:[birth year] (72 yo F)Acc No.[id number]:07/14/2023 Patient:?DYLON BROWN :1950???Age:72 Y???Sex:Female Address:[address] [place] [address] [address], [place] [address] * Refills? Refill Hyoscyamine Sulfate Tablet Disintegrating, 0.125 MG, Orally, 180, 1-2 tablets on the tongue and allow to dissolve as needed, Q 4-6 hours prn abdominal cramps/bloating/diarrhea, 90 days, Refills=3 Subjective: * Chief Complaints: * ???Lost her bottle of hyoscy amine * Medical History:? * Surgical History:? * Hospitalization/Major Diagno stic Procedure:? * Medications:? Objective: Assessment: Plan: * Treatment: * Procedure Codes:? * true * Date:? Generated for Eliezer prieto/Christina/Hariniitting on:?11/07/2024 04:08 PM EDT
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
== END 2024-11-07 17:07 | disposition home or self-care (01) ==
LOC: HO.HOP 16:06
PROVIDERS: PCP Internal Medicine; Visit Provider Clinical Nurse Specialist Psychiatric/Mental Health
DX: F33.2 Major depressive disorder, recurrent severe without psychotic features (principal)
CPT/HCPCS: 90792

== ENCOUNTER → 2024-11-07 16:06 | Outpatient (BNVA) | payer MEDICARE, SELFPAY | PROVIDERS: PCP Internal Medicine; Visit Provider Clinical Nurse Specialist Psychiatric/Mental Health | DX: F33.2 Major depressive disorder, recurrent severe without psychotic features (principal) | CPT/HCPCS: 90792 ==

== ENCOUNTER → 2024-11-30 13:51 | Outpatient (BNV) | payer MEDICARE, SELFPAY | PROVIDERS: Visit Provider Clinical Nurse Specialist Psychiatric/Mental Health | DX: F33.2 Major depressive disorder, recurrent severe without psychotic features (principal) | CPT/HCPCS: 99212; 99215; G2212 ==

== ENCOUNTER 2025-01-26 15:56 | Outpatient (REF) | payer MEDICARE, SELFPAY ==
--- NOTE | ~2025-01-26 | MM_ITS ---
EXAMINATION: MM SCREENING DIGITAL BREAST TOMOSYNTHESIS, BILATERAL CLINICAL INFORMATION: Screening. Asymptomatic. COMPARISON: Comparison made to multiple prior, most recent January 21, 2024, and most remote January 25, 2017. TECHNIQUE: Digital breast tomosynthesis is performed in both the craniocaudal and mediolateral oblique views along with computer-aided detection (CAD). FINDINGS: BREAST COMPOSITION: There are scattered areas of fibroglandular density (ACR BI-RADS breast composition Category b). BILATERAL BREASTS: No significant masses, suspicious calcifications or other abnormalities are seen in either breast. MM/MM tomosynthesis screening BI IMPRESSION: BILATERAL BREASTS: Negative, no mammographic evidence of malignancy. Normal interval follow-up is recommended in 12 months. ASSESSMENT: BI-RADS 1 - Negative RECOMMENDATION: Routine annual mammography screening. FOLLOW-UP: 1 year F/U This examination should not preclude the clinical evaluation of a suspicious palpable abnormality. This patient's information was entered into a reminder system with a target due date for their next mammogram. Electronically signed by: Vu Tenorio MD 01/30/2025 03:44 PM EDT
== END 2025-01-26 15:57 | disposition home or self-care (01) ==
LOC: HO.MAMMO 15:56
PROVIDERS: Visit Provider Internal Medicine
DX: Z12.31 Encounter for screening mammogram for malignant neoplasm of breast (principal)
CPT/HCPCS: 77063; 77067

== ENCOUNTER → 2025-01-26 16:00 | Outpatient (BNV) | payer MEDICARE, SELFPAY | PROVIDERS: Visit Provider Radiology Body Imaging | DX: Z12.31 Encounter for screening mammogram for malignant neoplasm of breast (principal) | CPT/HCPCS: 77063; 77067 ==

== ENCOUNTER 2025-02-02 10:03 | Outpatient (REF) | payer MEDICARE, SELFPAY ==
[2025-02-02 11:50] LABS: Alanine Aminotransferase 31 U/L (0-31); Albumin Level 4.3 g/dL (3.5-5.0); Alkaline Phosphatase 107 U/L (39-117); Anion Gap 11 (12-20); Aspartate Amino Transferase 30 U/L (5-31); Blood Urea Nitrogen 8 mg/dL (9-16); Calcium 8.5 mg/dL (8.4-10.2); Carbon Dioxide 26 mmol/L (22-29); Chloride 110 mmol/L (96-108); Cholesterol 253 mg/dL (<200); Estimated Glomerular Filt Rate > 60; HDL Cholesterol 46 mg/dL (>40); Potassium 4.4 mmol/L (3.3-5.1); Sodium 143 mmol/L (135-145); Total Protein 6.9 g/dL (6.5-8.0); Triglycerides 111 mg/dL (<150)
== END 2025-02-02 10:04 | disposition home or self-care (01) ==
LOC: HO.LAB 10:03
PROVIDERS: PCP Internal Medicine; Visit Provider Internal Medicine
DX: E78.00 Pure hypercholesterolemia, unspecified (principal)
CPT/HCPCS: 36415; 80053; 80061

== ENCOUNTER 2025-02-08 11:00 | Outpatient (RCR) | payer MEDICARE, SELFPAY ==
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
--- NOTE | 2024-12-22 13:26 | P.PNPS_ITS ---
TMS Daily Progress Note Daily TMS Progress Note Date of Service: 12/22/24 Week #: 1 Treatment #(07-13): 2 PHQ-9 Pre-Treatment (-): 14 PHQ-9 Most Recent (07-10): 14 KAROL-7 Pre-Treatment (0-21): 0 KAROL-7 Most Recent (0-21): 0 Q-LES-Q-SF Most Recent: 40 Reviewed: TMS Tech Note Reviewed Verification: I have reviewed the TMS Inspector Government Property Note and agree with the contents. The patient remains a candidate to continue TMS treatment per protocol. Assessment and Plan (1) Major depressive disorder, recurrent severe without psychotic features: Status: Acute
--- NOTE | 2025-01-01 17:36 | HO.TMSDAILY2 ---
TMS Daily Progress Note Daily TMS Progress Note Date of Service: 01/01/25 Week #: 2 Treatment #(07-13): 8 PHQ-9 Pre-Treatment (-): 14 PHQ-9 Most Recent (07-10): 5 KAROL-7 Pre-Treatment (0-21): 0 KAROL-7 Most Recent (0-): 0 Q-LES-Q-SF Most Recent: 40 Reviewed: TMS Tech Note Reviewed Verification: I have reviewed the TMS Support Architect Note and agree with the contents. The patient remains a candidate to continue TMS treatment per protocol. Assessment and Plan (1) Major depressive disorder, recurrent severe without psychotic features: Status: Acute Plan continue TMS tx
--- NOTE | 2025-01-02 09:47 | HO.TMSDAILY2 ---
TMS Daily Progress Note Daily TMS Progress Note Date of Service: 12/21/24 Week #: 1 Treatment #(07-13): 1 and mapping PHQ-9 Pre-Treatment (-): 14 PHQ-9 Most Recent (07-10): 14 KAROL-7 Pre-Treatment (0-21): 0 KAROL-7 Most Recent (0-21): 0 Q-LES-Q-SF Most Recent: 40 Reviewed: TMS Tech Note Reviewed Verification: I have reviewed the TMS Clinical Science Liaison Note and agree with the contents. The patient remains a candidate to continue TMS treatment per protocol. Assessment and Plan (1) Major depressive disorder, recurrent severe without psychotic features: Status: Acute Plan Pt tolerated TMS mapping well; continue with TMS treatment protocol
--- NOTE | 2025-01-02 09:48 | HO.TMSDAILY2 ---
TMS Daily Progress Note Daily TMS Progress Note Date of Service: 12/25/24 Week #: 1 Treatment #(07-13): 3 PHQ-9 Pre-Treatment (-): 14 PHQ-9 Most Recent (07-10): 14 KAROL-7 Pre-Treatment (0-21): 0 KAROL-7 Most Recent (0-21): 0 Q-LES-Q-SF Most Recent: 40 Reviewed: TMS Tech Note Reviewed Verification: I have reviewed the TMS Client Engagement Specialist Note and agree with the contents. The patient remains a candidate to continue TMS treatment per protocol. Assessment and Plan (1) Major depressive disorder, recurrent severe without psychotic features: Status: Acute Plan Continue with TMS treatment protocol
--- NOTE | 2025-01-02 09:49 | HO.TMSDAILY2 ---
TMS Daily Progress Note Daily TMS Progress Note Date of Service: 12/26/24 Week #: 1 Treatment #(07-13): 4 PHQ-9 Pre-Treatment (-): 14 PHQ-9 Most Recent (07-10): 14 KAROL-7 Pre-Treatment (0-21): 0 KAROL-7 Most Recent (0-21): 0 Q-LES-Q-SF Most Recent: 40 Reviewed: TMS Tech Note Reviewed Verification: I have reviewed the TMS Collision Repairer Note and agree with the contents. The patient remains a candidate to continue TMS treatment per protocol. Assessment and Plan (1) Major depressive disorder, recurrent severe without psychotic features: Status: Acute Plan Continue with TMS treatment protocol
--- NOTE | 2025-01-02 09:50 | HO.TMSDAILY2 ---
TMS Daily Progress Note Daily TMS Progress Note Date of Service: 12/28/24 Week #: 2 Treatment #(-): 6 PHQ-9 Pre-Treatment (-): 14 PHQ-9 Most Recent (07-10): 14 KAROL-7 Pre-Treatment (0-21): 0 KAROL-7 Most Recent (0-21): 0 Q-LES-Q-SF Most Recent: 40 Reviewed: TMS Tech Note Reviewed Verification: I have reviewed the TMS Targeting Acquisition Officer Note and agree with the contents. The patient remains a candidate to continue TMS treatment per protocol. Assessment and Plan (1) Major depressive disorder, recurrent severe without psychotic features: Status: Acute Plan Continue with TMS treatment protocol
--- NOTE | 2025-01-04 17:46 | HO.TMSDAILY2 ---
TMS Daily Progress Note Daily TMS Progress Note Date of Service: 01/04/25 Week #: 3 Treatment #(-): 11 PHQ-9 Pre-Treatment (1-): 14 PHQ-9 Most Recent (07-10): 5 KAROL-7 Pre-Treatment (0-21): 0 KAROL-7 Most Recent (0-21): 0 Q-LES-Q-SF Most Recent: 40 Reviewed: TMS Tech Note Reviewed Verification: I have reviewed the TMS Communications Equipment Supervisor Note and agree with the contents. The patient remains a candidate to continue TMS treatment per protocol. Assessment and Plan (1) Major depressive disorder, recurrent severe without psychotic features: Status: Acute Plan Continue with TMS treatment protocol
--- NOTE | 2025-01-08 15:34 | P.PNPS_ITS ---
TMS Daily Progress Note Daily TMS Progress Note Date of Service: 01/02/25 Week #: 2 Treatment #(07-13): 9 PHQ-9 Pre-Treatment (-): 14 PHQ-9 Most Recent (07-10): 5 KAROL-7 Pre-Treatment (0-21): 0 KAROL-7 Most Recent (0-21): 0 Q-LES-Q-SF Most Recent: 40 Reviewed: TMS Tech Note Reviewed Verification: I have reviewed the TMS Respiratory Physician Note and agree with the contents. The patient remains a candidate to continue TMS treatment per protocol. Assessment and Plan (1) Major depressive disorder, recurrent severe without psychotic features: Status: Acute Plan Continue with TMS treatment protocol
--- NOTE | 2025-01-09 13:00 | P.PNPS_ITS ---
TMS Daily Progress Note Daily TMS Progress Note Date of Service: 01/08/25 Week #: 3 Treatment #(07-13): 13 PHQ-9 Pre-Treatment (-): 14 PHQ-9 Most Recent (07-10): 6 KAROL-7 Pre-Treatment (0-21): 0 KAROL-7 Most Recent (0-21): 0 Q-LES-Q-SF Most Recent: 40 Reviewed: TMS Tech Note Reviewed Verification: I have reviewed the TMS Stocking And Box Shop Supervisor Note and agree with the contents. The patient remains a candidate to continue TMS treatment per protocol. Assessment and Plan (1) Major depressive disorder, recurrent severe without psychotic features: Status: Acute Plan Continue with TMS treatment protocol
--- NOTE | 2025-01-09 13:01 | P.PNPS_ITS ---
TMS Daily Progress Note Daily TMS Progress Note Date of Service: 01/09/25 Week #: 3 Treatment #(07-13): 14 PHQ-9 Pre-Treatment (-): 14 PHQ-9 Most Recent (07-10): 6 KAROL-7 Pre-Treatment (0-21): 0 KAROL-7 Most Recent (0-21): 0 Q-LES-Q-SF Most Recent: 40 Reviewed: TMS Tech Note Reviewed Verification: I have reviewed the TMS Longwall Headgate Operator Note and agree with the contents. The patient remains a candidate to continue TMS treatment per protocol. Assessment and Plan (1) Major depressive disorder, recurrent severe without psychotic features: Status: Acute Plan Continue with TMS treatment protocol
--- NOTE | 2025-01-11 15:36 | P.PNPS_ITS ---
TMS Daily Progress Note Daily TMS Progress Note Date of Service: 01/11/25 Week #: 4 Treatment #(-): 16 PHQ-9 Pre-Treatment (1-): 14 PHQ-9 Most Recent (07-10): 6 KAROL-7 Pre-Treatment (0-21): 0 KAROL-7 Most Recent (0-21): 0 Q-LES-Q-SF Most Recent: 40 Reviewed: TMS Tech Note Reviewed Verification: I have reviewed the TMS Vice President Global Digital Marketing Note and agree with the contents. The patient remains a candidate to continue TMS treatment per protocol. Assessment and Plan (1) Major depressive disorder, recurrent severe without psychotic features: Status: Acute Plan Continue with TMS treatment protocol
--- NOTE | 2025-01-15 16:59 | HO.TMSDAILY2 ---
TMS Daily Progress Note Daily TMS Progress Note Date of Service: 01/15/25 Week #: 4 Treatment #(07-13): 18 PHQ-9 Pre-Treatment (1-): 14 PHQ-9 Most Recent (07-10): 4 KAROL-7 Pre-Treatment (0-21): 0 KAROL-7 Most Recent (0-21): 0 Q-LES-Q-SF Most Recent: 40 Reviewed: TMS Tech Note Reviewed Verification: I have reviewed the TMS Wire Products Inspector Note and agree with the contents. The patient remains a candidate to continue TMS treatment per protocol. Assessment and Plan (1) Major depressive disorder, recurrent severe without psychotic features: Status: Acute Plan Continue with TMS treatment protocol
--- NOTE | 2025-01-23 13:31 | P.PNPS_ITS ---
TMS Daily Progress Note Daily TMS Progress Note Date of Service: 01/16/25 Week #: 4 Treatment #(07-13): 19 PHQ-9 Pre-Treatment (-): 14 PHQ-9 Most Recent (07-10): 4 KAROL-7 Pre-Treatment (0-21): 0 KAROL-7 Most Recent (0-21): 0 Q-LES-Q-SF Most Recent: 40 Reviewed: TMS Tech Note Reviewed Verification: I have reviewed the TMS Video Conference Specialist Note and agree with the contents. The patient remains a candidate to continue TMS treatment per protocol. Assessment and Plan (1) Major depressive disorder, recurrent severe without psychotic features: Status: Acute Plan Met with patient to [facility] midway through treatment; she reports feeling very positive about TMS results. 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 Continue with TMS treatment protocol
--- NOTE | 2025-01-23 13:37 | P.PNPS_ITS ---
TMS Daily Progress Note Daily TMS Progress Note Date of Service: 01/18/25 Week #: 5 Treatment #(-): 21 PHQ-9 Pre-Treatment (1-): 14 PHQ-9 Most Recent (07-10): 4 KAROL-7 Pre-Treatment (0-21): 0 KAROL-7 Most Recent (0-21): 0 Q-LES-Q-SF Most Recent: 40 Reviewed: TMS Tech Note Reviewed Verification: I have reviewed the TMS Flight Attendant/Inflight Manager Note and agree with the contents. The patient remains a candidate to continue TMS treatment per protocol. Assessment and Plan (1) Major depressive disorder, recurrent severe without psychotic features: Status: Acute Plan Continue with TMS treatment protocol
--- NOTE | 2025-01-23 13:38 | HO.TMSDAILY2 ---
TMS Daily Progress Note Daily TMS Progress Note Date of Service: 01/22/25 Week #: 5 Treatment #(-): 23 PHQ-9 Pre-Treatment (1-): 14 PHQ-9 Most Recent (07-10): 3 KAROL-7 Pre-Treatment (0-21): 0 KAROL-7 Most Recent (0-21): 0 Q-LES-Q-SF Most Recent: 40 Reviewed: TMS Tech Note Reviewed Verification: I have reviewed the TMS Sales Promotion Officer Note and agree with the contents. The patient remains a candidate to continue TMS treatment per protocol. Assessment and Plan (1) Major depressive disorder, recurrent severe without psychotic features: Status: Acute Plan Continue with TMS treatment protocol
--- NOTE | 2025-02-05 16:14 | P.PNPS_ITS ---
TMS Daily Progress Note Daily TMS Progress Note Date of Service: 01/23/25 Week #: 5 Treatment #(-): 24 PHQ-9 Pre-Treatment (-): 14 PHQ-9 Most Recent (07-10): 3 KAROL-7 Pre-Treatment (0-21): 0 KAROL-7 Most Recent (0-21): 0 CGI-I Most Recent: 2 = Much Improved Q-LES-Q-SF Most Recent: 40 Reviewed: TMS Tech Note Reviewed Verification: I have reviewed the TMS Insurance Counselor Note and agree with the contents. The patient remains a candidate to continue TMS treatment per protocol. Assessment and Plan (1) Major depressive disorder, recurrent severe without psychotic features: Status: Acute Plan Continue with TMS treatment protocol
--- NOTE | 2025-02-05 16:15 | P.PNPS_ITS ---
TMS Daily Progress Note Daily TMS Progress Note Date of Service: 01/25/25 Week #: 6 Treatment #(-): 26 PHQ-9 Pre-Treatment (-): 14 PHQ-9 Most Recent (07-10): 3 KAROL-7 Pre-Treatment (0-21): 0 KAROL-7 Most Recent (0-21): 0 CGI-I Most Recent: 2 = Much Improved Q-LES-Q-SF Most Recent: 40 Reviewed: TMS Tech Note Reviewed Verification: I have reviewed the TMS Fire Extinguisher Technician Note and agree with the contents. The patient remains a candidate to continue TMS treatment per protocol. Assessment and Plan (1) Major depressive disorder, recurrent severe without psychotic features: Status: Acute Plan Continue with TMS treatment protocol
--- NOTE | 2025-02-13 13:58 | HO.TMSDAILY2 ---
TMS Daily Progress Note Daily TMS Progress Note Date of Service: 02/08/25 Week #: 8 Treatment #(07-13): 36 PHQ-9 Pre-Treatment (-): 14 PHQ-9 Most Recent (07-10): 4 KAROL-7 Pre-Treatment (0-21): 0 KAROL-7 Most Recent (0-21): 0 CGI-I Most Recent: 2 = Much Improved Q-LES-Q-SF Most Recent: 40 Reviewed: TMS Tech Note Reviewed Verification: I have reviewed the TMS Patternmaker Plastics Note and agree with the contents. The patient remains a candidate to continue TMS treatment per protocol. Assessment and Plan (1) Major depressive disorder, recurrent severe without psychotic features: Status: Acute Plan This property underwriter met with patient today. pt reports much improvement from TMS. mood improved, energy improved, more social, feeling hopeful. discussed weaning off meds; TW recommended waiting up to 6 months before trying to taper off meds and to do a very slow taper. discussed consult service here at [facility] and recommend she discuss with pcp referring for consult with myself or colleague Savana SUAZO before tapering. Pt verbalized understanding. She denies any ill effects from TMS.
--- NOTE | 2025-02-13 20:56 | HO.TMSDAILY2 ---
TMS Daily Progress Note Daily TMS Progress Note Date of Service: 12/27/24 Week #: 1 Treatment #(07-13): 5 PHQ-9 Pre-Treatment (-): 14 PHQ-9 Most Recent (07-10): 14 KAROL-7 Pre-Treatment (0-21): 0 KAROL-7 Most Recent (0-21): 0 CGI-I Most Recent: 0 = Not Assessed Q-LES-Q-SF Most Recent: 40 Reviewed: TMS Tech Note Reviewed Verification: I have reviewed the TMS Commodities Requirements Analyst Note and agree with the contents. The patient remains a candidate to continue TMS treatment per protocol. Assessment and Plan (1) Major depressive disorder, recurrent severe without psychotic features: Status: Acute Plan Continue plan of care patient with some insomnia
--- NOTE | 2025-02-13 21:02 | P.PNPS_ITS ---
TMS Daily Progress Note Daily TMS Progress Note Date of Service: 02/13/25 Week #: 2 Treatment #(07-13): 7 PHQ-9 Pre-Treatment (-): 14 PHQ-9 Most Recent (07-10): 14 KAROL-7 Pre-Treatment (0-21): 0 KAROL-7 Most Recent (0-21): 0 CGI-I Most Recent: 0 = Not Assessed Q-LES-Q-SF Most Recent: 40 Reviewed: TMS Tech Note Reviewed Verification: I have reviewed the TMS Senior Examiner Note and agree with the contents. The patient remains a candidate to continue TMS treatment per protocol. Assessment and Plan (1) Major depressive disorder, recurrent severe without psychotic features: Status: Acute Plan Gradually increase MT continue plan of care continues with ongoing insomnia not seemingly related to TMS
--- NOTE | 2025-02-13 21:05 | HO.TMSDAILY2 ---
TMS Daily Progress Note Daily TMS Progress Note Date of Service: 01/03/25 Week #: 2 Treatment #(-): 10 PHQ-9 Pre-Treatment (1-): 14 PHQ-9 Most Recent (07-10): 5 KAROL-7 Pre-Treatment (0-21): 0 KAROL-7 Most Recent (0-21): 0 CGI-I Most Recent: 0 = Not Assessed Q-LES-Q-SF Most Recent: 40 Reviewed: TMS Tech Note Reviewed Verification: I have reviewed the TMS Tapping Machine Operator Automatic Note and agree with the contents. The patient remains a candidate to continue TMS treatment per protocol. Assessment and Plan (1) Major depressive disorder, recurrent severe without psychotic features: Status: Acute Plan Gradually increase MT continue plan of care
--- NOTE | 2025-02-18 17:06 | P.PNPS_ITS ---
TMS Daily Progress Note Daily TMS Progress Note Date of Service: 01/05/25 Week #: 3 Treatment #(-): 12 PHQ-9 Pre-Treatment (1-): 14 PHQ-9 Most Recent (07-10): 5 KAROL-7 Pre-Treatment (0-21): 0 KAROL-7 Most Recent (0-21): 0 CGI-I Most Recent: 0 = Not Assessed Q-LES-Q-SF Most Recent: 40 Reviewed: TMS Tech Note Reviewed Verification: I have reviewed the TMS Director Of Counterintelligence Note and agree with the contents. The patient remains a candidate to continue TMS treatment per protocol. Assessment and Plan (1) Major depressive disorder, recurrent severe without psychotic features: Status: Acute Plan continue plan of care pt tolerating tx doing well
--- NOTE | 2025-02-18 17:12 | HO.TMSDAILY2 ---
TMS Daily Progress Note Daily TMS Progress Note Date of Service: 01/10/25 Week #: 3 Treatment #(07-13): 15 PHQ-9 Pre-Treatment (-): 14 PHQ-9 Most Recent (07-10): 6 KAROL-7 Pre-Treatment (0-21): 0 KAROL-7 Most Recent (0-21): 0 CGI-I Most Recent: 0 = Not Assessed Q-LES-Q-SF Most Recent: 40 Reviewed: TMS Tech Note Reviewed Verification: I have reviewed the TMS Lithoduplicator Operator Note and agree with the contents. The patient remains a candidate to continue TMS treatment per protocol. Assessment and Plan (1) Major depressive disorder, recurrent severe without psychotic features: Status: Acute Plan continue plan of care pt tolerating tx doing well no adverse effects
--- NOTE | 2025-02-18 17:18 | HO.TMSDAILY2 ---
TMS Daily Progress Note Daily TMS Progress Note Date of Service: 01/12/25 Week #: 4 Treatment #(07-13): 17 PHQ-9 Pre-Treatment (-): 14 PHQ-9 Most Recent (07-10): 6 KAROL-7 Pre-Treatment (0-21): 0 KAROL-7 Most Recent (0-21): 0 CGI-I Most Recent: 0 = Not Assessed Q-LES-Q-SF Most Recent: 40 Reviewed: TMS Tech Note Reviewed Verification: I have reviewed the TMS Tunnel Drier Operator Note and agree with the contents. The patient remains a candidate to continue TMS treatment per protocol. Assessment and Plan (1) Major depressive disorder, recurrent severe without psychotic features: Status: Acute Plan continue plan of care pt tolerating tx doing well no adverse effects
--- NOTE | 2025-02-18 17:27 | P.PNPS_ITS ---
TMS Daily Progress Note Daily TMS Progress Note Date of Service: 01/17/25 Week #: 4 Treatment #(-): 20 PHQ-9 Pre-Treatment (-): 14 PHQ-9 Most Recent (07-10): 4 KAROL-7 Pre-Treatment (0-21): 0 KAROL-7 Most Recent (0-21): 0 CGI-I Most Recent: 0 = Not Assessed Q-LES-Q-SF Most Recent: 40 Reviewed: TMS Tech Note Reviewed Verification: I have reviewed the TMS Public Safety Director Note and agree with the contents. The patient remains a candidate to continue TMS treatment per protocol. Assessment and Plan (1) Major depressive disorder, recurrent severe without psychotic features: Status: Acute Plan continue plan of care pt tolerating tx doing well no adverse effects
--- NOTE | 2025-02-18 17:31 | P.PNPS_ITS ---
TMS Daily Progress Note Daily TMS Progress Note Date of Service: 01/19/25 Week #: 5 Treatment #(-): 22 PHQ-9 Pre-Treatment (1-): 14 PHQ-9 Most Recent (07-10): 4 KAROL-7 Pre-Treatment (0-21): 0 KAROL-7 Most Recent (0-21): 0 CGI-I Most Recent: 0 = Not Assessed Q-LES-Q-SF Most Recent: 40 Reviewed: TMS Tech Note Reviewed Verification: I have reviewed the TMS Stitching Department Supervisor Note and agree with the contents. The patient remains a candidate to continue TMS treatment per protocol. Assessment and Plan (1) Major depressive disorder, recurrent severe without psychotic features: Status: Acute Plan continue plan of care pt tolerating tx doing well no adverse effects doing well
--- NOTE | 2025-02-18 17:35 | P.PNPS_ITS ---
TMS Daily Progress Note Daily TMS Progress Note Date of Service: 01/24/25 Week #: 5 Treatment #(-): 25 PHQ-9 Pre-Treatment (1-): 14 PHQ-9 Most Recent (07-10): 3 KAROL-7 Pre-Treatment (0-21): 0 KAROL-7 Most Recent (0-21): 0 CGI-I Most Recent: 0 = Not Assessed Q-LES-Q-SF Most Recent: 40 Reviewed: TMS Tech Note Reviewed Verification: I have reviewed the TMS Radio Electronics Technician Note and agree with the contents. The patient remains a candidate to continue TMS treatment per protocol. Assessment and Plan (1) Major depressive disorder, recurrent severe without psychotic features: Status: Acute Plan continue plan of care pt tolerating tx doing well no adverse effects doing well
--- NOTE | 2025-02-18 17:42 | HO.TMSDAILY2 ---
TMS Daily Progress Note Daily TMS Progress Note Date of Service: 01/26/25 Week #: 6 Treatment #(-): 27 PHQ-9 Pre-Treatment (1-): 14 PHQ-9 Most Recent (07-10): 3 KAROL-7 Pre-Treatment (0-21): 0 KAROL-7 Most Recent (0-21): 0 CGI-I Most Recent: 0 = Not Assessed Q-LES-Q-SF Most Recent: 40 Reviewed: TMS Tech Note Reviewed Verification: I have reviewed the TMS Grade School Teacher Note and agree with the contents. The patient remains a candidate to continue TMS treatment per protocol. Assessment and Plan (1) Major depressive disorder, recurrent severe without psychotic features: Status: Acute Plan continue plan of care pt tolerating tx doing well no adverse effects doing well feels much improved
--- NOTE | 2025-02-18 18:10 | P.PNPS_ITS ---
TMS Daily Progress Note Daily TMS Progress Note Date of Service: 01/29/25 Week #: 6 Treatment #(-): 28 PHQ-9 Pre-Treatment (-): 14 PHQ-9 Most Recent (07-10): 3 KAROL-7 Pre-Treatment (0-21): 0 KAROL-7 Most Recent (0-21): 0 CGI-I Most Recent: 0 = Not Assessed Q-LES-Q-SF Most Recent: 40 Reviewed: TMS Tech Note Reviewed Verification: I have reviewed the TMS Svp Digital Ad Sales Note and agree with the contents. The patient remains a candidate to continue TMS treatment per protocol. Assessment and Plan (1) Major depressive disorder, recurrent severe without psychotic features: Status: Acute Plan continue plan of care pt tolerating tx doing well no adverse effects doing well feels much improved more energy to fx
--- NOTE | 2025-02-18 18:16 | HO.TMSDAILY2 ---
TMS Daily Progress Note Daily TMS Progress Note Date of Service: 01/30/25 Week #: 6 Treatment #(-): 29 PHQ-9 Pre-Treatment (1-): 14 PHQ-9 Most Recent (07-10): 3 KAROL-7 Pre-Treatment (0-21): 0 KAROL-7 Most Recent (0-21): 0 CGI-I Most Recent: 0 = Not Assessed Q-LES-Q-SF Most Recent: 40 Reviewed: TMS Tech Note Reviewed Verification: I have reviewed the TMS Construction Tech Note and agree with the contents. The patient remains a candidate to continue TMS treatment per protocol.
--- NOTE | 2025-02-18 18:22 | HO.TMSDAILY2 ---
TMS Daily Progress Note Daily TMS Progress Note Date of Service: 01/31/25 Week #: 6 Treatment #(-): 30 PHQ-9 Pre-Treatment (-): 14 PHQ-9 Most Recent (07-10): 3 KAROL-7 Pre-Treatment (0-21): 0 KAROL-7 Most Recent (0-21): 0 CGI-I Most Recent: 0 = Not Assessed Q-LES-Q-SF Most Recent: 40 Reviewed: TMS Tech Note Reviewed Verification: I have reviewed the TMS Assembler Dry Cell And Battery Note and agree with the contents. The patient remains a candidate to continue TMS treatment per protocol. Assessment and Plan (1) Major depressive disorder, recurrent severe without psychotic features: Status: Acute Plan continue plan of care pt tolerating tx doing well no adverse effects doing well feels much improved more energy to fx
--- NOTE | 2025-02-18 18:28 | HO.TMSDAILY2 ---
TMS Daily Progress Note Daily TMS Progress Note Date of Service: 02/01/25 Week #: 7 Treatment #(07-13): 31 PHQ-9 Pre-Treatment (07-10): 14 PHQ-9 Most Recent (07-10): 3 KAROL-7 Pre-Treatment (0-): 0 KAROL-7 Most Recent (0-): 0 CGI-I Most Recent: 0 = Not Assessed Q-LES-Q-SF Most Recent: 40 Reviewed: TMS Tech Note Reviewed Verification: I have reviewed the TMS Body And Frame Technician Note and agree with the contents. The patient remains a candidate to continue TMS treatment per protocol. Assessment and Plan (1) Major depressive disorder, recurrent severe without psychotic features: Status: Acute Plan continue plan of care pt tolerating tx doing well no adverse effects doing well feels much improved more energy to fx
--- NOTE | 2025-02-18 18:31 | HO.TMSDAILY2 ---
TMS Daily Progress Note Daily TMS Progress Note Date of Service: 02/02/25 Week #: 7 Treatment #(07-13): 32 PHQ-9 Pre-Treatment (-): 14 PHQ-9 Most Recent (07-10): 3 KAROL-7 Pre-Treatment (0-21): 0 KAROL-7 Most Recent (0-21): 0 CGI-I Most Recent: 0 = Not Assessed Q-LES-Q-SF Most Recent: 40 Reviewed: TMS Tech Note Reviewed Verification: I have reviewed the TMS Commercial Roofing Estimator Note and agree with the contents. The patient remains a candidate to continue TMS treatment per protocol. Assessment and Plan (1) Major depressive disorder, recurrent severe without psychotic features: Status: Acute Plan continue plan of care pt tolerating tx doing well no adverse effects doing well feels much improved more energy to fx
--- NOTE | 2025-02-18 18:35 | P.PNPS_ITS ---
TMS Daily Progress Note Daily TMS Progress Note Date of Service: 02/07/25 Week #: 8 Treatment #(07-13): 35 PHQ-9 Pre-Treatment (-): 14 PHQ-9 Most Recent (07-10): 3 KAROL-7 Pre-Treatment (0-21): 0 KAROL-7 Most Recent (0-21): 0 CGI-I Most Recent: 0 = Not Assessed Q-LES-Q-SF Most Recent: 40 Reviewed: TMS Tech Note Reviewed Verification: I have reviewed the TMS Principal Accounts Clerk Note and agree with the contents. The patient remains a candidate to continue TMS treatment per protocol. Assessment and Plan (1) Major depressive disorder, recurrent severe without psychotic features: Status: Acute Plan continue plan of care pt tolerating tx doing well no adverse effects doing well feels much improved more energy to fx
--- NOTE | 2025-02-20 09:58 | HO.TMSDAILY2 ---
TMS Daily Progress Note Daily TMS Progress Note Date of Service: 02/05/25 Week #: 7 Treatment #(07-13): 33 PHQ-9 Pre-Treatment (-): 14 PHQ-9 Most Recent (07-10): 4 KAROL-7 Pre-Treatment (0-21): 0 KAROL-7 Most Recent (0-21): 0 CGI-I Most Recent: 0 = Not Assessed Q-LES-Q-SF Most Recent: 40 Reviewed: TMS Tech Note Reviewed Verification: I have reviewed the TMS Giving Officer Note and agree with the contents. The patient remains a candidate to continue TMS treatment per protocol. Assessment and Plan (1) Major depressive disorder, recurrent severe without psychotic features: Status: Acute Plan continue plan of care pt tolerating tx doing well no adverse effects doing well feels much improved more energy to fx
--- NOTE | 2025-02-20 09:59 | HO.TMSDAILY2 ---
TMS Daily Progress Note Daily TMS Progress Note Date of Service: 02/06/25 Week #: 8 Treatment #(07-13): 34 PHQ-9 Pre-Treatment (-): 14 PHQ-9 Most Recent (07-10): 4 KAROL-7 Pre-Treatment (0-21): 0 KAROL-7 Most Recent (0-21): 0 CGI-I Most Recent: 0 = Not Assessed Q-LES-Q-SF Most Recent: 40 Reviewed: TMS Tech Note Reviewed Verification: I have reviewed the TMS Sample Shoe Inspector And Reworker Note and agree with the contents. The patient remains a candidate to continue TMS treatment per protocol. Assessment and Plan (1) Major depressive disorder, recurrent severe without psychotic features: Status: Acute Plan continue plan of care pt tolerating tx doing well no adverse effects doing well feels much improved more energy to fx
== END 2025-02-08 12:19 | disposition home or self-care (01) ==
LOC: HO.PTMS 11:00
PROVIDERS: Visit Provider Clinical Nurse Specialist Psychiatric/Mental Health
DX: F33.2 Major depressive disorder, recurrent severe without psychotic features (principal)
CPT/HCPCS: 90867; 90868

== ENCOUNTER → 2025-02-08 11:00 | Outpatient (BNV) | payer MEDICARE, SELFPAY | PROVIDERS: Visit Provider Psychiatry & Neurology Psychiatry | DX: F33.2 Major depressive disorder, recurrent severe without psychotic features (principal) | CPT/HCPCS: 90868 ==

== ENCOUNTER 2025-05-29 16:38 | Outpatient (AMB) | payer MEDICARE, SELFPAY ==
[2025-05-29 16:40] VITALS: BP 158/88; PULSE 72; RESP 16; TEMP 36.2; O2SAT 96; BMI 34.5
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
--- OUTSIDE RECORDS SUMMARY | 2025-05-29 20:15 | XMS_ITS | Patient Health Record ---
Author Organization [facility] Address [address] [place] [address] Care Team Providers Care Underwriting Account Representative Name Role Phone Elma Lopez Primary Care Provider Vamshi Terry Unavailable [phone] Allergies Allergen (clinical drug ingredient) Drug/Non Drug Allergy documented on EMR Reaction Allergy Type Onset Date Status Sulfa Unknown Drug Allergy Active trazodone Trazodone Unknown Drug Allergy Active Reason For Referral No Information Medications Medication SIG (Take, Route, Frequency, Duration) Notes Start Date End Date Status Hyoscyamine Sulfate 0.125 MG Tablet Sublingual 1 or 2 tablet under the tongue and allow to dissolve as needed Sublingual Every 6 hours as needed for abdominal cramps/discomfort; Duration: 30 days 06/15/2023 Active Hyoscyamine Sulfate 0.125 MG Tablet Disintegrating 1 or 2 tablets on the tongue and allow to dissolve Orally every 4 to 6 hours if needed for abdominal discomfort or cramps; Duration: 90 days Active Glucosamine 500 MG Capsule 1 capsule with a meal Orally Three times a day; Duration: 30 day(s) Active Beano prn Unknown amLODIPine Besy-Benazepril HCl 5-10 MG Capsule as directed Orally Active Probiotic Unknown Vitamin B12 100 MCG Tablet as directed Orally Active Vitamin C ER 500 MG Capsule Extended Release 1 capsule Orally Once a day; Duration: 30 day(s) Active Diovan 160mg Not-[place] ing/PRN Multi Vitamin/Minerals Unknown buPROPion HCl 100 MG Tablet 1 tablet Orally Active Citrucel Unknown Omeprazole 20 MG Tablet Delayed Release 1 tablet Orally Once a day; Duration: 30 day(s) Active Bupropion & Diet Manage Prod Unknown Losartan Potassium 100 MG Tablet TAKE 1 TABLET BY MOUTH ONCE DAILY Oral; Duration: 90 Active Aspir-81 81mg Unknow n Mirtazapine 15 MG Tablet TAKE 1 TABLET B Y MOUTH AT BEDTIME Oral; Duration: 90 Active Aspir-81 Not-Taking /PRN Lactaid prn Unknown Dicyclomine HCl 10 MG Capsule 1 or 2 capsules Orally Every 6 hours prn abdominal cramps/discomfort; Duration: 30 day(s) 03/30/2022 Active Red Yeast Rice 600mg Unknown CoQ-10 300mg Unknown Fish Oil 1200mg Unkn own Flaxseed Oil 1200mg Unknown Vitamin C 500mg Unkn own Immunizations Vaccine Route Administration Date Status Comme nts Influenza Unknown 06/29/2018 Refused Influenza Unknown 01/17/2020 Administered Influenza Unknown 07/29/2022 Refused Social History Social History Drugs/Alcohol: Social Info Question Answer Notes Alcohol Screen Did you have a drink containing alcohol in the past year? Yes How often did you have a drink containing alcohol in the past year? Monthly or less (1 point) How many drinks did you have on a typical day when you were drinking in the past year? 1 or 2 drinks (0 point) How often did you have 6 or more drinks on one occasion in the past year? Never (0 point) Points 1 Interpretation Negative Additional Details Category Social Info Options Details Miscellaneous: Marital status: Occupation: automotive title clerk --Retired Section Notes: Nonsmoker; occ. alcohol Nonsmoker; occ. alcohol Nonsmoker; occ. alcohol Nonsmoker; occ. alcohol Nonsmoker; occ. alcohol Nonsmoker; occ. alcohol Problems Problem Type SNOMED Code ICD Code Onset Dates Problem Status W/U Status Risk Notes Problem Screening for malignant neoplasm of colon (423778817) Encounter for screening for malignant neoplasm of colon (Z12.11) Active confirmed Problem History of adenomatous polyp of colon (317669235) History of adenomatous polyp of colon (Z86.010) Active confirmed Problem Irritable bowel syndrome with diarrhea (502210123) Irritable bowel syndrome with diarrhea (K58.0) Active confirmed Problem Gastroesophageal reflux disease without esophagitis (974974400) Gastroesophageal reflux disease without esophagitis (K21.9) Active confirmed Problem Fatty liver (309500280) Fatty liver (K76.0) Active confirmed Problem Long-term current use of antiplatelet drug (070767939413994) Long-term use of aspirin therapy (Z79.82) Active confirmed Problem Benign neoplasm of colon (31053317) Serrated adenoma of colon (D12.6) Active confirmed Problem Sessile serrated polyp of colon (9188234390) Sessile serrated polyp of colon (D12.6) Active confirmed Plan Of Treatment Pending Test Test Name Order Date LIVER PROFILE 11/05/2011 IRON + IBC (FE) 11/05/2011 FERRITIN 11/05/2011 HEPATITIS B PROFILE 11/05/2011 HEPATITIS C ANTIBODY 11/05/2011 [id number] (A1A) 11/05/2011 MITOCHONDRIAL AB 11/05/2011 SMOOTH MUSCLE [...] Date MEDICARE OF [place] [address] [place] [address] [phone] [id number] DYLON BROWN Self - patient is the insured [employer] ATT[employer] CLAIMS [address] [place] [phone] [id number] DYLON BROWN Self - patient is the insured Medical (General) History Medical History History ICD Code Hypertension Hyperlipidemia Depression Denies [place],DM,CVA,Lung disease,renal dise ase Screening colonoscopy--Tubular adenoma r [...]
== END 2025-05-29 17:50 | disposition home or self-care (01) ==
LOC: HO.HMCH 16:39
PROVIDERS: PCP Internal Medicine; Visit Provider Internal Medicine
DX: F33.2 Major depressive disorder, recurrent severe without psychotic features (principal); I10 Essential (primary) hypertension; E78.00 Pure hypercholesterolemia, unspecified; K21.9 Gastro-esophageal reflux disease without esophagitis

== ENCOUNTER → 2025-05-29 16:38 | Outpatient (BNVA) | payer MEDICARE, SELFPAY | PROVIDERS: PCP Internal Medicine; Visit Provider Internal Medicine | DX: I10 Essential (primary) hypertension (principal); F33.2 Major depressive disorder, recurrent severe without psychotic features; K21.9 Gastro-esophageal reflux disease without esophagitis; E78.00 Pure hypercholesterolemia, unspecified; Z13.31 Encounter for screening for depression; Z13.39 Encounter for screening examination for other mental health and behavioral disorders; Z79.899 Other long term (current) drug therapy | CPT/HCPCS: 96127; 99212 ==